=== PATIENT | female | born 1995 | race African-American/Black ===

== ENCOUNTER 2025-07-22 14:01 | Emergency (ER) | payer OTHER, SELFPAY ==
--- NOTE | ~2025-07-22 | US_ITS ---
EXAMINATION: US venous doppler LE RT, 07/22/2025 17:00 CDT HISTORY: pain R lateral upper thigh, r/o dvt Comparison: None Technique: Garland-scale and color Doppler images were attempted of the lower saphenofemoral junction, common femoral vein,superficial femoral vein, proximal deep femoral vein, proximal deep femoral vein, popliteal vein and posterior tibial veins. Findings: Deep Venous System:Normal flow, augmentation and compressibility. No echogenic thrombus identified. The contralateral saphenofemoral junction appears unremarkable. Superficial Venous SystemNo superficial thrombophlebitis. Soft tissues: Soft tissues are unremarkable. Impression: Negative for DVT. Reviewed, dictated and finalized at location A. Impression: Negative for DVT.
[2025-07-22 14:27] VITALS: BP 141/87; PULSE 83; RESP 20; TEMP 36.9; O2SAT 99
--- NOTE | 2025-07-22 15:49 | ED.LOWEXIN ---
HPI - Extremity Injury (Lower) General Chief Complaint: Extremity Injury, Lower Stated Complaint: right leg pain Time Seen by Provider: 07/22/25 15:49 Focused HPI: Patient is a 29-year-old female who presents the ED with report of right lateral thigh pain. Patient reports having pain throughout her upper thigh for the past 1.5 weeks. Describes pain as a dull ache. Denies any trauma or injury. Saw her primary care doctor today was referred to the ED to rule out a blood clot. Denies history of blood clots. States that she has been driving more frequently than usual. Denies control use or smoking history. Has been taking Excedrin without much improvement. Denies numbness, tingling, swelling of leg. GENERAL: Well-appearing, morbidly obese with BMI of 43.2, and in no acute distress. HEAD: Normocephalic, atraumatic. CHEST: Clear to auscultation. ?No respiratory distress. HEART: Regular rate and rhythm.? MSK: No significant swelling/edema throughout right lower extremity. Minimal tenderness throughout right lateral proximal thigh. NEURO: ?Alert and oriented x3. Patient screened in triage and initial orders placed.? ?Additional care and disposition to be based upon?diagnostic testing and treatment. Source: patient Mode of arrival: ambulatory Limitations: no limitations Related Data Allergies Allergy/AdvReac Type Severity Reaction Status Date / Time No Known Allergies Allergy Verified 07/22/25 14:26 Course Vital Signs Vital signs: Vital Signs Temperature 98.4 F 07/22/25 14:27 Pulse Rate 83 07/22/25 14:27 Respiratory Rate 20 07/22/25 14:27 Blood Pressure 141/87 H 07/22/25 14:27 Pulse Oximetry 99 07/22/25 14:27 Oxygen Delivery Room Air 07/22/25 14:27 Temperature 98.4 F 07/22/25 14:27 Pulse Rate 83 07/22/25 14:27 Respiratory Rate 20 07/22/25 14:27 Blood Pressure 141/87 H 07/22/25 14:27 Pulse Oximetry 99 07/22/25 14:27 Oxygen Delivery Room Air 07/22/25 14:27 MDM - Extremity Injury (Lower) MDM Narrative Medical decision making narrative: MSE By RYAN in triage. Patient left facility after initial MSE in triage prior to further workup or care. Medical Records Attestation: I reviewed the patient's medical records. Discharge Plan Discharge Clinical Impression: Pain of right lateral upper thigh Patient Disposition: Elopement After Seen by Prov Patient Language: [place] Follow-up/Referrals: Shalom Olmos MD [Primary Care Provider, [facility]]
== END 2025-07-22 19:37 | disposition left against medical advice (07) ==
PROVIDERS: Emergency Provider Emergency Medicine; PCP Emergency Medicine
DX: M79.651 Pain in right thigh (principal)
CPT/HCPCS: 93971; 99284